=== PATIENT | female | born 1975 | race Caucasian/White ===

== ENCOUNTER 2019-12-08 08:44 | Emergency (ER) | payer OTHER, MEDICAID, SELFPAY ==
[2019-12-08 08:46] VITALS: BP 134/90; PULSE 107; RESP 16; TEMP 36.3; O2SAT 100; BMI 25.8
--- NOTE | 2019-12-08 09:03 | CT_ITS ---
STUDY: CT ABDOMEN AND PELVIS WITHOUT CONTRAST REASON FOR EXAM: Female, 44 years old. LT FLANK PAIN RADIATION DOSAGE (If Supplied By Facility): CTDIvol = ( 9.14 ) mGy, DLP = ( 475.14 ) mGycm TECHNIQUE: Transaxial images were obtained from the dome of the diaphragm to the symphysis pubis without oral contrast, and without intravenous contrast. Sagittal and coronal images were reconstructed. Individualized dose optimization techniques were used for this CT. COMPARISON: None. FINDINGS: The visualized lung bases are unremarkable. The visualized portions of the heart are within normal limits. There are 2 adjacent hypodense nodules in the peripheral lateral aspect of the right lobe of liver. The larger measures 2.3 cm x 1.7 cm. Is also evidence of bone findings suggestive of scattered small cyst in the dome of the right lobe. Correlation with nodular ultrasound of the liver versus enhanced CT scan is recommended to rule out pathological process. Normal gallbladder and extrahepatic biliary system. Normal spleen. Normal pancreas. Normal bilateral adrenal glands. Punctate calcification in the upper pole calyx of the right kidney. Normal left kidney. There is a small hiatal hernia. Normal small intestine. Normal colon. The appendix is visualized and appears normal. Normal abdominal aorta. Normal inferior vena cava. Normal retroperitoneum. Normal urinary bladder. There is a small umbilical hernia containing fat. Normal osseous structures. CT/Abdomen/Pelvis without Cont IMPRESSION: Hypodense lesions in the liver as described. Correlation with ultrasound of the liver or CT enhanced examination is recommended. Punctate calcification the upper pole calyx of the right kidney. Electronically Signed: Diaz Gordon, at 9:48 EST , Service support ,
--- NOTE | 2019-12-08 09:04 | ED.VISSUMM ---
- ER Visit Summary Date of Service: 12/08/19 Chief Complaint: Left flank pain History of Present Illness: The patient is a 44 F presenting with left flank pain. Patient states this started this morning. It started suddenly when she bent over. She has history of kidney stones and states this feels similar. She took Motrin at home prior to arrival. She denies fever. Denies hematuria. Denies other complaints. Physical Examination: Vitals are stable. Patient is afebrile. Alert no acute distress. HEENT exam is unremarkable. Neck is supple. Lungs are clear and equal bilaterally. Heart is regular rate and rhythm. Abdomen is soft nontender nondistended. No guarding or rebound Left CVA tenderness Extremities are unremarkable. Skin is warm and dry. No rash Remainder of exam is unremarkable. Emergency Department Course and Treatment: Patient declined pain medication. Urinalysis shows trace blood, 0 white cells, 0-[address] abdomen pelvis shows hypodense lesions in the liver. Correlation with ultrasound of the liver or CT enhanced examination is recommended. Punctate calcification the upper pole calyx of the right kidney. Patient is advised of these findings and advised to follow-up with her primary care physician. Discussed possibility of muscle strain versus recently passed kidney stone. Her pain is well controlled now. She will continue Motrin at home. Advised to return to the ED for worsening complaints. Disposition: Discharge home Impression: Flank pain This note was generated with [employer] dictation software. It may contain incorrect words, spelling, and punctuation that were not noted in review of the chart prior to signing ED Disposition - Plan for ED Patient: Instructions: ED Flank Pain Uncertain Cause Referrals: Thomas Henson MD [Primary Care Provider] -
[2019-12-08 09:15] LABS: Bacteria 0 SEEN /hpf (None Seen); Mucous, Urine 0 SEEN /hpf (<or=2+); White Blood Cells 0 SEEN /hpf (0-5)
--- NOTE | 2019-12-08 09:15 | ED.RN ---
PT REFUSED MEDS AT THIS TIME. STATES DOESN'T NEED RIGHT NOW BUT MIGHT LATER
[2019-12-08 09:27] LABS: Color, Urine Straw (Yellow); Glucose, Dipstick Normal (Normal); Ketone-Dipstick Negative (Negative); Leukocyte Esterase-Dipstick Negative /ul (Negative); Nitrite-Dipstick Negative (Negative); Occult Blood-Urine 10 /ul (Negative); Protein-Dipstick Negative (Negative); Specific Gravity, Urine 1.005 (1.002-1.030); Urine Bilirubin Dipstick Negative (Negative); Urine Clarity Sl. Cloudy (Clear); Urine Urobilinogen Normal (Normal)
[2019-12-08 09:44] LABS: Red Blood Cells-Urine 0-5 SEEN /hpf (0-5); Squamous Epithelial Cells - UA 0-5 SEEN /hpf (5-10)
--- NOTE | 2019-12-08 09:57 | ED.DEP ---
ED Disposition - Plan for ED Patient: Instructions: ED Flank Pain Uncertain Cause Referrals: Thomas Henson MD [Primary Care Provider] -
== END 2019-12-08 10:09 | disposition home or self-care (01) ==
PROVIDERS: Emergency Provider Emergency Medicine; PCP Family Medicine
DX: R10.9 Unspecified abdominal pain (principal); F17.200 Nicotine dependence, unspecified, uncomplicated; Z87.442 Personal history of urinary calculi
CPT/HCPCS: 74176; 81001; 99283; J7030; A4216; J2405